=== PATIENT | male | born 1955 | race Caucasian/White ===

== ENCOUNTER 2019-09-25 21:52 | Emergency (ER) | payer OTHER ==
[~2019-09-25] VITALS: Ht 177.8 cm; Wt 97.7 kg
[2019-09-25] MEDS ORDERED: ketorolac trometh. 30mg/ml inj. IV ONE ×2 (22:10→22:20)
[2019-09-25] MEDS ORDERED: ondansetron/PF 4mg/2ml inj IV ONE ×2 (22:10→22:20)
[2019-09-25] MEDS ORDERED: normal saline 1000ML IV soln IVB ONE ×2 (22:20→23:10)
[2019-09-25] MEDS ORDERED: morphine 4 MG/ML inj SYRINge IV PRN (22:20)
[2019-09-25] MEDS ORDERED: LORazepam 2 mg/ml vial IV ONE (22:20)
[2019-09-25 22:29] LABS: BASOPHILS # (AUTO) 0.1 X10'3 (0-0.2); BASOPHILS % (AUTO) 0.9 % (0-1); EOSINOPHILS # (AUTO) 0.1 X10'3 (0-0.9); EOSINOPHILS % (AUTO) 1.4 % (0-6); HEMATOCRIT 48.9 % (42.0-52.0); HEMOGLOBIN 16.5 g/dl (14.0-17.9); LYMPHOCYTES # (AUTO) 3.2 X10'3 (1.1-4.8); LYMPHOCYTES % (AUTO) 36.2 % (21-51); MEAN CORPUSCULAR HGB CONC 33.8 g/dL (33.0-36.5); MEAN CORPUSCULAR VOLUME 91.6 FL (78-98); MEAN PLATELET VOLUME 7.6 FL (7.4-10.4); MONOCYTES # (AUTO) 0.9 X10'3 (0-0.9); MONOCYTES % (AUTO) 9.9 % (2-12); NEUTROPHILS # (AUTO) 4.6 X10'3 (1.8-7.7); NEUTROPHILS % (AUTO) 51.6 % (42-75); PLATELET COUNT 284 X10'3 (140-440); RED BLOOD COUNT 5.34 X10'6 (4.70-6.10); RED CELL DISTRIBUTION WIDTH 12.9 % (11.5-14.5); WHITE BLOOD COUNT 8.8 X10'3 (4.5-11.0)
[2019-09-25 22:39] LABS: ALANINE AMINOTRANSFERASE 21 U/L (12-78); ALBUMIN 4.1 G/DL (3.4-5.0); ALKALINE PHOSPHATASE 100 IU/L (46-116); ANION GAP 11 (8-16); ASPARTATE AMINO TRANSFERASE 23 U/L (10-37); BILIRUBIN,TOTAL 0.5 MG/DL (0.1-1.0); BLOOD UREA NITROGEN 21 MG/DL (7-18); BUN/CREATININE RATIO 16.4 (5.4-32.0); CALCIUM 9.6 MG/DL (8.5-10.1); CHLORIDE 108 MMOL/L (99-107); CREATININE 1.28 MG/DL (0.60-1.10); GLUCOSE 158 MG/DL (70-104); LIPASE 138 U/L (73-393); POTASSIUM 3.6 MMOL/L (3.5-5.1); SODIUM 147 MMOL/L (135-145); TOTAL CARBON DIOXIDE 28.5 MMOL/L (24-32); TOTAL PROTEIN 8.4 G/DL (6.4-8.2); eGFR 57 ML/MIN
--- NOTE | 2019-09-25 23:03 | NUR ---
PT REFUSES CT SCAN, STATING HE FELT LIKE HE COULDNT HOLD STILL FOR THE SCAN.
[2019-09-25] MEDS ORDERED: normal saline 1000ml 1,000 ML IVB ONE (23:13)
--- NOTE | 2019-09-25 23:14 | NUR ---
pt doesn't want any morphine right now
[2019-09-25 23:49] LABS: CLARITY,URINE SLIGHTLY CLOUDY (Clear); COLOR,URINE YELLOW (Yellow); GLUCOSE, URINE 100 mg/dl (Neg); KETONES,URINE NEGATIVE (Neg); LEUKOCYTE ESTERASE ,URINE NEGATIVE (Neg); NITRITES, URINE NEGATIVE (Neg); OCCULT BLOOD,URINE MODERATE (Neg); PROTEIN,URINE NEGATIVE (Neg); UROBILINOGEN,URINE 0.2 E.U/dL (0.2-1.0)
[2019-09-25 23:50] LABS: UA COLLECTION TYPE VOIDED
[2019-09-25 23:55] LABS: BACTERIA,URINE NONE SEEN /HPF (Neg); MUCUS STRANDS NONE SEEN /LPF (Neg); RBC,URINE 20-50 /HPF (0-2); SQUAMOUS EPITHELIAL CELL,UR FEW /LPF (FEW); WBC,URINE NONE SEEN /HPF (0-4)
[2019-09-26] MEDS ORDERED: KETO10TA2 PO (00:22)
[2019-09-26] MEDS ORDERED: ONDA4TAB6 PO (00:22)
[2019-09-26] MEDS ORDERED: DIAZ5TAB PO (00:22)
[2019-09-26] MEDS ORDERED: HYDR-4353 PO (00:22)
[2019-09-26] MEDS ORDERED: OXYB5TAB16 PO (00:22)
[2019-09-26] MEDS ORDERED: TADA20TA PO (00:22)
[2019-09-26 00:45] VITALS: BP 157/82
== END 2019-09-26 00:48 | disposition home or self-care (01) ==
LOC: ER 21:53
DX: N28.9 Disorder of kidney and ureter, unspecified (principal); N23 Unspecified renal colic; I10 Essential (primary) hypertension; Z72.89 Other problems related to lifestyle; Z79.899 Other long term (current) drug therapy
CPT/HCPCS: 36415; 80053; 81001; 83690; 85025; 96374; 96375; 99284; J1885; J2060; J2270; J2405; J7030